=== PATIENT | male | born 1965 | race Caucasian/White ===

== ENCOUNTER 2018-02-23 22:07 | Inpatient (IN) | payer OTHER ==
[~2018-02-23] VITALS: Ht 170.2 cm; Wt 77.6 kg
[~2018-02-23 22:07] MED LIST: CEFUROXIME500 MG PO; CRESTOR5 MG; LEVSIN/SL0.125 MG SL; PEPCID40 MG PO
== END 2018-02-28 17:21 | disposition home or self-care (01) | DRG 444 ==
LOC: ER 22:07 → SURH 02-24 14:49
PROC: BF37ZZZ Magnetic Resonance Imaging (MRI) of Pancreas (ICD-10-PCS; 2018-02-24)
PROC: 0F9430Z Drainage of Gallbladder with Drainage Device, Percutaneous Approach (ICD-10-PCS; principal; 2018-02-25)
PROC: 3E0336Z Introduction of Nutritional Substance into Peripheral Vein, Percutaneous Approach (ICD-10-PCS; 2018-02-25)
PROC: 02HV33Z Insertion of Infusion Device into Superior Vena Cava, Percutaneous Approach (ICD-10-PCS; 2018-02-26)
DX: K80.12 Calculus of gallbladder with acute and chronic cholecystitis without obstruction (principal); A41.9 Sepsis, unspecified organism; N17.8 Other acute kidney failure; E78.4 Other hyperlipidemia; K76.0 Fatty (change of) liver, not elsewhere classified

== ENCOUNTER → 2021-10-03 | Outpatient (CLI) | payer OTHER | END | disposition home or self-care (01) | LOC: PPH VACUNA 08:00 | PROVIDERS: ATTEND Emergency Medicine Pediatric Emergency Medicine | DX: Z23 Encounter for immunization (principal) ==

== ENCOUNTER 2022-08-01 09:22 | Outpatient (CLI) | payer OTHER | END 2022-08-01 09:32 | disposition home or self-care (01) | LOC: PPH VACUNA 09:22 | PROVIDERS: ATTEND Emergency Medicine Pediatric Emergency Medicine | DX: Z23 Encounter for immunization (principal) ==